=== PATIENT | female | born 1970 | race Caucasian/White ===

== ENCOUNTER 2018-04-28 22:35 | Emergency (ER) | payer OTHER ==
[~2018-04-28] VITALS: Ht 154.9 cm; Wt 68.0 kg
[~2018-04-28 22:35] MED LIST: ALBU-136 IH; AMIT25TA28 PO; QUET200T PO
[2018-04-28 22:37] VITALS: BP 107/74
--- NOTE | 2018-04-28 22:42 | NUR ---
PT AMBULATORY TO ER LOBBY W/ STEADY GAIT IN STABLE CONDITION.
--- NOTE | 2018-04-28 23:28 | NUR ---
PT ambulated to bed 06.
--- NOTE | 2018-04-28 23:42 | NUR ---
PT BIB FOR HEART PALPITATIONS AND CP. PT REPORTS FEELING LIKE HER HEART IS BEATING TOO FAST CAUSING SHARP CP. PT DENIES ANY PAIN AT THIS TIME. PT REPORTS PAIN STARTED 1.5 HOURS AGO AND LASTING FOR 1 HOUR. PT STATED PAIN WAS AT 7/10 ON HER L CHEST WITH NUMBNESS RADIATING DOWN R ARM. PT ALSO REPORTS SORE THROAT MAKING IT DIFFICULT TO BREATH. RR NON-LABORED, SYMMETRICAL, WITH LUNG SOUNDS CLEAR THROUGHOUT. NO EDEMA PRESENT, CAP REFIL<3SEC, HEART RRR. ER MD TO SEE PT. HOB ELEVATED, SIDE RAIL UP X1, BED IN LOWEST POSITION. WILL CONTINUE TO MONITOR PT. MEDHX:ASTHMA, BRONCHITIS, ANXIETY
--- NOTE | 2018-04-29 01:00 | NUR ---
Dr. Gutierres evaluating patient at bedside.
[2018-04-29 01:13] VITALS: BP 106/82
--- NOTE | 2018-04-29 01:13 | NUR ---
Patient discharged by Dr. Gutierres with v/s stable. Written and verbal after care instructions given and explained. Patient verbalized understanding. Ambulatory with steady gait. All questions addressed prior to discharge. Advised to follow up with PMD.
== END 2018-04-29 01:13 | disposition home or self-care (01) ==
LOC: MED 22:35
DX: R00.2 Palpitations (principal); T48.5X5A Adverse effect of other anti-common-cold drugs, initial encounter; J45.909 Unspecified asthma, uncomplicated; Z79.2 Long term (current) use of antibiotics; Z79.899 Other long term (current) drug therapy; Y92.89 Other specified places as the place of occurrence of the external cause
CPT/HCPCS: 93005; 99283

== ENCOUNTER 2019-03-29 20:53 | Emergency (ER) | payer OTHER ==
[~2019-03-29] VITALS: Ht 162.6 cm; Wt 68.0 kg
[2019-03-29 20:55] VITALS: BP 115/78
--- NOTE | 2019-03-29 20:55 | NUR ---
TO BED # 11 AMBULATORY
[2019-03-29] MEDS ORDERED: ALPRAZolam 0.5 MG TAB PO ONE (21:10)
--- NOTE | 2019-03-29 21:16 | NUR ---
BIB FRIEND C/O SOB, ANXIETY ATTACK, SINUS PAIN. PATIENT REPORTS TO HAVING AN ANXIETY ATTACK & SOB X 2 HOURS AGO. LABORED RESPIRATION, ACCESSORY MUSCLE USE, TRI POD POSITIONING NOTED. NO REPORTS OF N/V/D. PATIENT RECOVERING FROM FLU/COLD 2 WEEKS AGO AND REPORTS NOSTRILS/THROAT DRYNESS. BILATERAL LUNG SOUNDS CLEAR. PMH: ANXIETY, DEPRESSION, ASTHMA
[2019-03-29 22:03] VITALS: BP 120/79
--- NOTE | 2019-03-29 22:04 | NUR ---
Patient discharged with v/s stable. Written and verbal after care instructions given and explained. Patient verbalized understanding. Ambulatory with FRIEND to car. All questions addressed prior to discharge. Advised to follow up with PMD.
== END 2019-03-29 22:04 | disposition home or self-care (01) ==
LOC: MED 20:53
DX: F41.9 Anxiety disorder, unspecified (principal); J45.909 Unspecified asthma, uncomplicated; Z79.899 Other long term (current) drug therapy
CPT/HCPCS: 99284

== ENCOUNTER 2019-04-18 19:01 | Emergency (ER) | payer OTHER ==
[~2019-04-18] VITALS: Ht 162.6 cm; Wt 63.5 kg
[2019-04-18 19:40] VITALS: BP 119/58
--- NOTE | 2019-04-18 19:43 | NUR ---
TO LOBBY A/W BED AMBULATORY
[2019-04-18 20:11] VITALS: BP 119/58
--- NOTE | 2019-04-18 20:11 | NUR ---
Patient discharged with v/s stable. Written and verbal after care instructions given and explained. Patient alert, oriented and verbalized understanding of instructions. Ambulatory with steady gait. All questions addressed prior to discharge. ID band removed. Patient advised to follow up with PMD. Rx of NAPROSYN WAS given. Patient educated on indication of medication including possible reaction and side effects. Opportunity to ask questions provided and answered. PT WAS ASSESSED AND D/C BY DR. CABRAL
== END 2019-04-18 20:11 | disposition home or self-care (01) ==
LOC: MED 19:01
DX: M94.0 Chondrocostal junction syndrome [Tietze] (principal); Z79.899 Other long term (current) drug therapy; J45.909 Unspecified asthma, uncomplicated
CPT/HCPCS: 93005; 99283

== ENCOUNTER 2020-12-18 17:18 | Emergency (ER) | payer OTHER ==
[~2020-12-18] VITALS: Ht 162.6 cm; Wt 63.5 kg
[~2020-12-18 17:18] MED LIST changes: +ALBU-118 IH; -ALBU-136 IH
[2020-12-18 17:34] VITALS: BP 109/73
--- NOTE | 2020-12-18 20:27 | NUR ---
ERMD ASSESSING PT IN [facility].
[2020-12-18] MEDS ORDERED: KETOROLAC 30 MG/ML VIAL IM ONE (20:35)
[2020-12-18] MEDS ORDERED: ACET-8386 PO (22:33)
--- NOTE | 2020-12-18 22:45 | NUR ---
SKYLA DISCUSSING RESULTS WITH PT.
--- NOTE | 2020-12-18 22:51 | NUR ---
Patient discharged with v/s stable. Written and verbal after care instructions given and explained. Patient alert, oriented and verbalized understanding of instructions. Ambulatory with steady gait WITH WALKER ASSIST. All questions addressed prior to discharge. ID band removed. Patient advised to follow up with PMD. Rx of NORCO given. Patient educated on indication of medication including possible reaction and side effects. Opportunity to ask questions provided and answered.
== END 2020-12-18 22:51 | disposition home or self-care (01) ==
LOC: MED 17:18
DX: G89.29 Other chronic pain (principal); M79.10 Myalgia, unspecified site; J45.909 Unspecified asthma, uncomplicated
CPT/HCPCS: 70450; 96372; 99284; J1885

== ENCOUNTER 2022-11-17 00:15 | Emergency (ER) | payer OTHER ==
[~2022-11-17] VITALS: Ht 162.6 cm; Wt 54.4 kg
[~2022-11-17 00:15] MED LIST changes: +ACET-8905 PO
[2022-11-17 00:24] VITALS: BP 122/69; PULSE 118; RESP 18; TEMP 97.6; O2SAT 98
[2022-11-17] MEDS ORDERED: ALBUTEROL SULFATE/IPRATROPIU 3 ML SOL IH ONE (00:45)
[2022-11-17 01:14] VITALS: PULSE 109; RESP 15; O2SAT 100
[2022-11-17] MEDS ORDERED: NAPR-54 PO (02:05)
[2022-11-17 02:08] LABS: AMPHETAMINE, URINE POSITIVE ng/ml (NEG <=1000); BARBITURATE, URINE NEGATIVE ng/ml (NEG <=200); BENZODIAZEPINE, URINE POSITIVE ng/mL (NEG <=200); CANNABINOID, URINE NEGATIVE ng/mL (NEG <=50); COCAINE, URINE NEGATIVE ng/mL (NEG <=300); OPIATE, URINE NEGATIVE ng/mL (NEG <=2000); PHENCYCLIDINE SCREEN,URINE NEGATIVE ng/mL (NEG <=25)
[2022-11-17 02:25] VITALS: BP 115/76; PULSE 98; RESP 15; TEMP 97.6; O2SAT 100
== END 2022-11-17 02:25 | disposition home or self-care (01) ==
LOC: MED 00:15
DX: S20.219A Contusion of unspecified front wall of thorax, initial encounter (principal); F15.129 Other stimulant abuse with intoxication, unspecified; F41.9 Anxiety disorder, unspecified; J45.909 Unspecified asthma, uncomplicated; Z79.899 Other long term (current) drug therapy; Y08.89XA Assault by other specified means, initial encounter; Y93.9 Activity, unspecified; Y92.89 Other specified places as the place of occurrence of the external cause; Y99.8 Other external cause status
CPT/HCPCS: 71045; 80305; 81025; 94640; 99284